=== PATIENT | male | born 1980 | race Caucasian/White ===

== ENCOUNTER 2020-11-19 04:16 | Emergency (ER) | payer SELFPAY ==
[~2020-11-19 04:16] MED LIST: AMOXICILLIN 8751 TAB PO; NO HOME MEDICATIONS; NORCO 325 MG-51 TA1 PO
[2020-11-19 05:25] VITALS: BP 144/99
[2020-11-19] MEDS ORDERED: AUGMENTIN 875-1 EAC1 PO (05:28)
== END 2020-11-19 05:36 | disposition home or self-care (01) ==
LOC: ED 04:16
DX: L03.116 Cellulitis of left lower limb (principal); Z87.442 Personal history of urinary calculi; Z87.828 Personal history of other (healed) physical injury and trauma
CPT/HCPCS: J0696

== ENCOUNTER → 2021-12-17 | Outpatient (CLI) | payer BC ==
[~2021-12-17] MED LIST changes: +AUGMENTIN 875-1 EAC1 PO
== END ==
LOC: LAB 09:15 → RAD 09:15
PROVIDERS: Internal Medicine
DX: M20.11 Hallux valgus (acquired), right foot (principal); Z83.2 Family history of diseases of the blood and blood-forming organs and certain disorders involving the immune mechanism

== ENCOUNTER 2022-03-07 19:53 | Emergency (ER) | payer BC ==
[~2022-03-07] VITALS: Ht 175.3 cm; Wt 86.4 kg
[2022-03-07] MEDS ORDERED: AMOXICILLIN 50500 MG PO (21:03)
[2022-03-07] MEDS ORDERED: NORCO 325 MG-51 TA1 PO (21:03)
[2022-03-07 23:07] VITALS: BP 168/101
== END 2022-03-07 23:07 | disposition home or self-care (01) ==
LOC: ED 19:53
DX: K04.7 Periapical abscess without sinus (principal); I10 Essential (primary) hypertension; F17.210 Nicotine dependence, cigarettes, uncomplicated
CPT/HCPCS: J0696

== ENCOUNTER 2023-02-04 12:42 | Emergency (ER) | payer BC ==
[~2023-02-04] VITALS: Ht 170.2 cm; Wt 86.4 kg
[~2023-02-04 12:42] MED LIST changes: +AMOXICILLIN 50500 MG PO
[2023-02-04 13:58] LABS: BASO # 0.02 K/mm3 (0.02-0.10); EOS # 0.22 K/mm3 (0.04-0.40); EOS % 2.7 % (0.0-4.0); HEMATOCRIT 45.9 % (42.0-52.0); HEMOGLOBIN 15.2 g/dL (13.5-18.0); LYMPH# 1.72 K/mm3 (1.50-4.00); MEAN CELL VOLUME 91 fl (78-100); MEAN CORPUSCULAR HEMOGLOBIN 30 pg (27-31); MEAN CORPUSCULAR HGB CONC 33 g/dL (33-37); MEAN PLATELET VOLUME 8.5 fl (7.4-10.4); MONO # 0.91 K/mm3 (0.20-0.80); NEU # 5.29 K/mm3 (1.40-6.50); PLATELET COUNT 227 K/mm3 (130-400); RED BLOOD COUNT 5.07 M/mm3 (4.20-5.60); RED CELL DISTRIBUTION WIDTH 12.7 % (11.5-14.5); WHITE BLOOD COUNT 8.2 K/mm3 (4.8-10.8)
[2023-02-04 14:06] LABS: ALBUMIN 4.1 g/dL (3.5-5.0); POTASSIUM 3.8 mmol/L (3.5-5.1)
[2023-02-04 14:07] LABS: CALCIUM 9.6 mg/dL (8.3-10.5)
[2023-02-04 14:09] LABS: TOTAL PROTEIN 7.5 g/dL (6.4-8.3)
[2023-02-04 14:11] LABS: TOTAL BILIRUBIN 0.3 mg/dL (0.2-1.2)
[2023-02-04 14:32] LABS: D-DIMER 0.71 mg/L FEU (0.15-0.50)
[2023-02-04] MEDS ORDERED: CEPHALEXIN500 M1 PO (15:54)
[2023-02-04] MEDS ORDERED: MORGIDOX 1X100100 MG PO (15:54)
[2023-02-04 17:01] VITALS: BP 154/107
== END 2023-02-04 16:20 | disposition home or self-care (01) ==
LOC: ED 12:42
PROVIDERS: Nurse Practitioner
DX: L03.115 Cellulitis of right lower limb (principal); R79.1 Abnormal coagulation profile; Z28.310 Unvaccinated for COVID-19
CPT/HCPCS: J1650

== ENCOUNTER 2023-02-06 16:01 | Outpatient (RCR) | payer BC ==
[2023-02-05 16:10] VITALS: BP 160/109
[~2023-02-06] VITALS: Ht 170.2 cm; Wt 86.4 kg
[~2023-02-06 16:01] MED LIST changes: +CEPHALEXIN500 M1 PO; +MORGIDOX 1X100100 MG PO
[2023-02-06 16:08] VITALS: BP 159/100
== END 2023-02-18 | disposition home or self-care (01) ==
LOC: AMSURD
DX: M79.89 Other specified soft tissue disorders (principal)
CPT/HCPCS: J1650

== ENCOUNTER 2024-07-08 11:48 | Emergency (ER) | payer BC ==
[~2024-07-08] VITALS: Ht 177.8 cm; Wt 84.1 kg
[~2024-07-08 11:48] MED LIST changes: +PREMIERPRO RX5 MG/GM OP
[2024-07-08] MEDS ORDERED: FLOMAX0.4 MG PO (12:54)
[2024-07-08] MEDS ORDERED: DITROPAN 5MG TAB5 MG PO (12:54)
[2024-07-08 13:23] VITALS: BP 131/95
== END 2024-07-08 13:31 | disposition home or self-care (01) ==
LOC: ED 11:48
DX: N20.0 Calculus of kidney (principal)